=== PATIENT | male | born 1935 | race Caucasian/White ===

== ENCOUNTER 2020-03-04 16:54 | Observation (INO) | payer MEDICARE, BC ==
[2020-03-04] MEDS ORDERED: Sodium Chloride 0.9% 1,000 ML IV ONE ×2 (17:12→18:34)
--- NOTE | 2020-03-04 17:28 | EDM.PDOC ---
ED HPI GENERAL MEDICAL PROBLEM - General Chief Complaint: Gastrointestinal Problem Stated Complaint: Diarrhea Time Seen by Provider: 03/04/20 17:23 Source of Information: Reports: Patient History Limitations: Reports: No Limitations - History of Present Illness INITIAL COMMENTS - FREE TEXT/NARRATIVE: 84-year-old male presents the emergency room with a chief complaint of having diarrhea for the past 2 weeks unable to stop. Patient has been on medications through his doctor and instructed to come to the [facility]: Today Duration: Week(s): (2), Getting Worse Location: Reports: Abdomen Quality: Reports: Ache Severity: Mild Improves with: Reports: None Worsens with: Reports: None Associated Symptoms: Reports: No Other Symptoms - Related Data Allergies Allergy/AdvReac Type Severity Reaction Status Date / Time No Known Allergies Allergy Verified 03/04/20 17:11 Home Meds: Home Meds Clopidogrel [Plavix] 75 mg PO DAILY 03/04/20 [History] Finasteride [Proscar] 5 mg PO DAILY 03/04/20 [History] RX: Ferrous Sulfate 325 mg PO DAILY 03/04/20 [History] RX: Simvastatin [Zocor] 1 mg PO DAILY 03/04/20 [History] RX: hydroCHLOROthiazide [Hydrochlorothiazide] 25 mg PO DAILY 03/04/20 [History] Social & Family History - Tobacco Use Smoking Status *Q: Former Smoker Used Tobacco, but Quit: Yes Month/Year Tobacco Last Used: 11/1994 - Recreational Drug Use Recreational Drug Use: No ED ROS GENERAL - Review of Systems Review Of Systems: See Below Constitutional: Reports: No Symptoms HEENT: Reports: No Symptoms Respiratory: Reports: No Symptoms Cardiovascular: Reports: No Symptoms Endocrine: Reports: No Symptoms GI/Abdominal: Reports: Diarrhea : Reports: No Symptoms Musculoskeletal: Reports: No Symptoms Skin: Reports: No Symptoms Neurological: Reports: No Symptoms Psychiatric: Reports: No Symptoms Hematologic/Lymphatic: Reports: No Symptoms Immunologic: Reports: No Symptoms ED EXAM, GI/ABD - Physical Exam Exam: See Below Exam Limited By: No Limitations General Appearance: Alert, WD/WN, No Apparent Distress Eyes: Bilateral: Normal Appearance Ears: Normal External Exam, Normal Canal, Hearing Grossly Normal, Normal TMs Nose: Normal Inspection, Normal Mucosa Throat/Mouth: Normal Inspection, Normal Lips, Normal Teeth, Normal Oropharynx, Normal Voice Head: Atraumatic, Normocephalic Neck: Normal Inspection, Supple, Non-Tender, Full Range of Motion Respiratory/Chest: No Respiratory Distress, Lungs Clear, Normal Breath Sounds, No Accessory Muscle Use, Chest Non-Tender Cardiovascular: Normal Peripheral Pulses, Regular Rate, Rhythm, No Edema, No Gallop, No JVD, No Murmur, No Rub GI/Abdominal Exam: Normal Bowel Sounds, Soft, Non-Tender, No Distention, No Abnormal Bruit (Male) Exam: No Hernia, Normal Inspection Back Exam: Normal Inspection, Full Range of Motion Extremities: Normal Inspection, Normal Range of Motion, Non-Tender, No Pedal Edema, Normal Capillary Refill Neurological: Alert, Oriented, CN II-XII Intact, Normal Cognition, Normal Gait, Normal Reflexes, No Motor/Sensory Deficits Psychiatric: Normal Affect, Normal Mood Skin Exam: Warm, Dry, Intact, Normal Color, No Rash Lymphatic: No Adenopathy Course - Vital Signs Text/Narrative:: Patient presents the emergency room with dehydration's and diarrhea. Patient given IV fluids in the emergency room labs show cysts evidence of dehydration patient is currently having diagnostic test for possible C. difficile patient will be admitted to the observation for rehydration and treatment of diarrhea illness Last Recorded V/S: Last Vital Signs Temp 97.2 F 03/04/20 17:07 Pulse 91 03/04/20 17:07 Resp 18 03/04/20 17:07 BP 145/72 H 03/04/20 17:07 Pulse Ox 95 03/04/20 17:07 - Orders/Labs/Meds Orders: Active Orders 24 hr Category Date Time Status C DIFFICILE AG/TOXIN W/REFLEX [RM] Stat Lab 03/04/20 17:48 Ordered UA RFX ELIZABETH AND CULT IF INDIC [URIN] Stat Lab 03/04/20 17:21 Ordered Sodium Chloride 0.9% [Normal Saline] 1,000 ml Med 03/04/20 18:34 Active IV .BOLUS Medication Orders Sodium Chloride (Normal Saline) 1,000 mls @ 150 mls/hr IV .BOLUS ONE Stop: 03/05/20 01:13 Last Admin: 03/04/20 18:40 Dose: 150 mls/hr Labs: Laboratory Tests 03/04/20 03/04/20 Range/Units 17:20 17:20 WBC 5.81 (4.0-11.0) K/uL RBC 4.54 (4.50-5.90) M/uL Hgb 12.1 L (13.0-17.0) g/dL Hct 37.6 L (38.0-50.0) % MCV 82.8 (80.0-98.0) fL MCH 26.7 L (27.0-32.0) pg MCHC 32.2 (31.0-37.0) g/dL RDW Std Deviation 39.3 (28.0-62.0) fl RDW Coeff of Jeffry 13 (11.0-15.0) % Plt Count 357 (150-400) K/uL MPV 9.10 (7.40-12.00) fL Add Manual Diff YES Neutrophils % (Manual) 67 (48.0-80.0) % Lymphocytes % (Manual) 19 (16.0-40.0) % Monocytes % (Manual) 12 (0.0-15.0) % Eosinophils % (Manual) 2 (0.0-7.0) % Nucleated RBC % 0.0 /100WBC Absolute Seg Neuts 3.9 (1.4-5.7) Lymphocytes # (Manual) 1.1 (0.6-2.4) Monocytes # (Manual) 0.7 (0.0-0.8) Eosinophils # (Manual) 0.1 (0.0-0.7) Nucleated RBCs # 0 K/uL Sodium 139 (136-148) mmol/L Potassium 3.2 L (3.5-5.1) mmol/L Chloride 100 (98-107) mmol/L Carbon Dioxide 30.8 (21.0-32.0) mmol/L BUN 29 H (7.0-18.0) mg/dL Creatinine 1.9 H (0.8-1.3) mg/dL Est Cr Clr Drug Dosing 30.82 mL/min Estimated GFR (MDRD) 33.9 ml/min Glucose 136 H (74-106) mg/dL Calcium 8.4 L (8.5-10.1) mg/dL Total Bilirubin 0.3 (0.2-1.0) mg/dL AST 14 L (15-37) IU/L ALT 16 (14-63) IU/L Alkaline Phosphatase 89 (46-116) U/L Troponin I < 0.050 (0.000-0.056) ng/mL Total Protein 6.5 (6.4-8.2) g/dL Albumin 3.0 L (3.4-5.0) g/dL Globulin 3.5 (2.6-4.0) g/dL Albumin/Globulin Ratio 0.9 (0.9-1.6) Meds: Medications Generic Name Dose Route Start Last Admin Trade Name Freq PRN Reason Stop Dose Admin Sodium Chloride 1,000 mls @ 150 mls/hr 03/04/20 18:34 03/04/20 18:40 Normal Saline IV 03/05/20 01:13 150 mls/hr .BOLUS ONE Administration Discontinued Medications Generic Name Dose Route Start Last Admin Trade Name Freq PRN Reason Stop Dose Admin Sodium Chloride 1,000 mls @ 1,000 mls/hr 03/04/20 17:12 03/04/20 17:27 Normal Saline IV 03/04/20 18:11 1,000 mls/hr .Bolus ONE Administration Departure - Departure Time of Disposition: 19:10 Disposition: Refer to Observation Condition: Good Clinical Impression: Diarrhea - Discharge Information Referrals: PCP,None [Primary Care Provider] - Forms: ED Department Discharge Sepsis Event Note - Evaluation Sepsis Screening Result: No Definite Risk - Focused Exam Vital Signs: Vital Signs Temp Pulse Resp BP Pulse Ox 03/04/20 17:07 97.2 F 91 18 145/72 H 95 Date Exam was Performed: 03/04/20 Time Exam was Performed: 19:12 - My Orders Last 24 Hours: My Active Orders 03/04/20 17:21 UA RFX ELIZABETH AND CULT IF INDIC [URIN] Stat 03/04/20 17:48 C DIFFICILE AG/TOXIN W/REFLEX [RM] Stat 03/04/20 18:34 Sodium Chloride 0.9% [Normal Saline] 1,000 ml IV .BOLUS - Assessment/Plan Last 24 Hours: My Active Orders 03/04/20 17:21 UA RFX ELIZABETH AND CULT IF INDIC [URIN] Stat 03/04/20 17:48 C DIFFICILE AG/TOXIN W/REFLEX [RM] Stat 03/04/20 18:34 Sodium Chloride 0.9% [Normal Saline] 1,000 ml IV .BOLUS
[2020-03-04 17:54] LABS: BLOOD UREA NITROGEN,BUN 29 mg/dL (7.0-18.0); CARBON DIOXIDE,CO2 30.8 mmol/L (21.0-32.0); CHLORIDE,CL 100 mmol/L (98-107); GLUCOSE RANDOM 136 mg/dL (74-106); POTASSIUM,K 3.2 mmol/L (3.5-5.1); SODIUM,NA 139 mmol/L (136-148)
--- NOTE | 2020-03-04 17:59 | CR ---
Chest: Portable view of the chest was obtained. Comparison: No previous chest imaging. Heart size and mediastinum are normal. Lungs are clear with no acute parenchymal change. Surgical anchors are noted within the right humerus from prior surgery. Scattered degenerative endplate spurring is noted within the spine with mild scoliosis. Impression: 1. Nothing acute is seen on portable chest x-ray. Diagnostic code #2 This report was dictated in MDT
[2020-03-04] MEDS ORDERED: Ondansetron 4 MG/2 ML SDV IVPUSH PRN (20:35)
--- NOTE | 2020-03-04 20:51 | PCM.HP.2 ---
H&P History of Present Illness - General Date of Service: 03/04/20 Admit Problem/Dx: Admission Diagnosis/Problem Admission Diagnosis/Problem Dehydration - History of Present Illness Initial Comments - Free Text/Narative: 84 yo male who presents to the ED with complaint of diarrhea for three months. Patient reports his diarrhea has worsened over the past two weeks. He reports exposive loose stools several times a day. He denies any fevers, abdominal pain , blood in stool, nausea or vomiting. He reports no change in diet. He has lost weight and a friend who saw him today told him to got the the [place] ED. - Related Data Allergies/Adverse Reactions: Allergies Allergy/AdvReac Type Severity Reaction Status Date / Time No Known Allergies Allergy Verified 03/05/20 00:25 Home Medications: Home Meds Clopidogrel [Plavix] 75 mg PO DAILY 03/04/20 [History] Ferrous Sulfate 325 mg PO DAILY 03/04/20 [History] Finasteride [Proscar] 5 mg PO DAILY 03/04/20 [History] Simvastatin [Zocor] 10 mg PO DAILY 03/04/20 [History] hydroCHLOROthiazide [Hydrochlorothiazide] 25 mg PO DAILY 03/04/20 [History] Loperamide [Imodium] 2 - 4 mg PO ASDIRECTED PRN 10 Days #16 cap 03/06/20 [Rx] Past Medical History HEENT History: Reports: Hard of Hearing, Impaired Vision Cardiovascular History: Reports: High Cholesterol, Hypertension Genitourinary History: Reports: Retention, Urinary, Other (See Below) Other Genitourinary History: per , pt has had david placed and prostate infection at one time but unable to give detailed hx. Musculoskeletal History: Reports: Other (See Below) Other Musculoskeletal History: weakness right side, uses cane at home sometimes Neurological History: Reports: Other (See Below) Other Neuro History: possible dementia or alzheimers, pt denies medical problems. per he has undiagnosed dementia and a stroke but unsure how long ago Hematologic History: Reports: Iron Deficiency Social & Family History - Family History Family Medical History: Noncontributory - Tobacco Use Smoking Status *Q: Former Smoker Used Tobacco, but Quit: Yes Month/Year Tobacco Last Used: 11/1994 - Recreational Drug Use Recreational Drug Use: No H&P Review of Systems - Review of Systems: Review Of Systems: Comprehensive ROS is negative, except as noted in HPI. Exam - Exam Exam: See Below - Vital Signs Vital Signs: Last Vital Signs Temp 36.2 C 03/04/20 17:07 Pulse 82 03/04/20 20:10 Resp 16 03/04/20 20:10 BP 118/63 03/04/20 20:10 Pulse Ox 99 03/04/20 20:10 Weight: 81.647 kg - Exam General: Alert, Oriented HEENT: Mucosa Moist & [place], Posterior Pharynx Clear Neck: Supple, Trachea Midline Lungs: Clear to Auscultation, Normal Respiratory Effort Cardiovascular: Regular Rate, Regular Rhythm GI/Abdominal Exam: Normal Bowel Sounds, Soft, Non-Tender, No Organomegaly Extremities: Non-Tender, No Pedal Edema Skin: Warm, Dry, Intact - Patient Data Lab Results Last 24 hrs: Laboratory Results - last 24 hr 03/04/20 03/04/20 03/04/20 Range/Units 17:20 17:20 19:00 WBC 5.81 (4.0-11.0) K/uL RBC 4.54 (4.50-5.90) M/uL Hgb 12.1 L (13.0-17.0) g/dL Hct 37.6 L (38.0-50.0) % MCV 82.8 (80.0-98.0) fL MCH 26.7 L (27.0-32.0) pg MCHC 32.2 (31.0-37.0) g/dL RDW Std Deviation 39.3 (28.0-62.0) fl RDW Coeff of Jeffry 13 (11.0-15.0) % Plt Count 357 (150-400) K/uL MPV 9.10 (7.40-12.00) fL Add Manual Diff YES Neutrophils % (Manual) 67 (48.0-80.0) % Lymphocytes % (Manual) 19 (16.0-40.0) % Monocytes % (Manual) 12 (0.0-15.0) % Eosinophils % (Manual) 2 (0.0-7.0) % Nucleated RBC % 0.0 /100WBC Absolute Seg Neuts 3.9 (1.4-5.7) Lymphocytes # (Manual) 1.1 (0.6-2.4) Monocytes # (Manual) 0.7 (0.0-0.8) Eosinophils # (Manual) 0.1 (0.0-0.7) Nucleated RBCs # 0 K/uL Sodium 139 (136-148) mmol/L Potassium 3.2 L (3.5-5.1) mmol/L Chloride 100 (98-107) mmol/L Carbon Dioxide 30.8 (21.0-32.0) mmol/L BUN 29 H (7.0-18.0) mg/dL Creatinine 1.9 H (0.8-1.3) mg/dL Est Cr Clr Drug Dosing 30.82 mL/min Estimated GFR (MDRD) 33.9 ml/min Glucose 136 H (74-106) mg/dL Calcium 8.4 L (8.5-10.1) mg/dL Total Bilirubin 0.3 (0.2-1.0) mg/dL AST 14 L (15-37) IU/L ALT 16 (14-63) IU/L Alkaline Phosphatase 89 (46-116) U/L Troponin I < 0.050 (0.000-0.056) ng/mL Total Protein 6.5 (6.4-8.2) g/dL Albumin 3.0 L (3.4-5.0) g/dL Globulin 3.5 (2.6-4.0) g/dL Albumin/Globulin Ratio 0.9 (0.9-1.6) Urine Color YELLOW Urine Appearance CLEAR Urine pH 5.5 (5.0-8.0) Ur Specific [place] >= 1.030 (1.001-1.035) Urine Protein NEGATIVE (NEGATIVE) mg/dL Urine Glucose (UA) NEGATIVE (NEGATIVE) mg/dL Urine Ketones NEGATIVE (NEGATIVE) mg/dL Urine Occult Blood NEGATIVE (NEGATIVE) Urine Nitrite NEGATIVE (NEGATIVE) Urine Bilirubin NEGATIVE (NEGATIVE) Urine Urobilinogen 0.2 (<2.0) EU/dL Ur Leukocyte Esterase NEGATIVE (NEGATIVE) Result Diagrams: 03/06/20 05:55 03/06/20 05:55 Zhou Results Last 24 hrs: Microbiology 03/04/20 19:00 C. difficile Antigen & Toxins A,B - Final Stool / Feces Sepsis Event Note - Evaluation Sepsis Screening Result: No Definite Risk - Focused Exam Vital Signs: Vital Signs Temp Pulse Resp BP Pulse Ox 03/04/20 20:10 82 16 118/63 99 03/04/20 17:07 36.2 C 91 18 145/72 H 95 Date Exam was Performed: 03/06/20 Time Exam was Performed: 11:18 Problem List Initiated/Reviewed/Updated: Yes Orders Last 24hrs: Active Orders 24 hr Category Date Time Status Admission Status [Patient Status] [ADT] Stat ADT 03/04/20 19:13 Active Antiembolic Devices [RC] PER UNIT ROUTINE Care 03/04/20 20:36 Ordered Oxygen Therapy [RC] PRN Care 03/04/20 20:35 Ordered Up ad Maxine [RC] ASDIRECTED Care 03/04/20 20:35 Ordered VTE/DVT Education [RC] PER UNIT ROUTINE Care 03/04/20 20:35 Ordered Vital Signs [RC] Q4H Care 03/04/20 20:35 Ordered Regular Diet [DIET] Diet 03/04/20 Breakfast Ordered BASIC METABOLIC PANEL,BMP [CHEM] AM Lab 03/05/20 05:11 Ordered CBC WITH AUTO DIFF [HEME] AM Lab 03/05/20 05:11 Ordered MAGNESIUM [CHEM] AM Lab 03/05/20 05:11 Ordered Ondansetron [Zofran] Med 03/04/20 20:35 Ordered 4 mg IVPUSH Q4H PRN Sodium Chloride 0.9% [Normal Saline] 1,000 ml Med 03/04/20 18:34 Active IV .BOLUS Sequential Compression Device [OM.PC] Per Unit Routine Oth 03/04/20 20:35 Ordered Resuscitation Status Routine Resus Stat 03/04/20 20:35 Ordered Medication Orders Sodium Chloride (Normal Saline) 1,000 mls @ 150 mls/hr IV .BOLUS ONE Stop: 03/05/20 01:13 Last Admin: 03/04/20 18:40 Dose: 150 mls/hr Ondansetron HCl (Zofran) 4 mg IVPUSH Q4H PRN PRN Reason: Nausea Assessment/Plan Comment:: 84 yo male admitted for diarrhea and dehydration. We will hydrate with IV fluids and send stools studies.
[2020-03-04 21:15] LABS: BILIRUBIN INDIRECT 0.2
[2020-03-04] MEDS: Sodium Chloride 0.9% 1,000 ML IV SCH (22:53)
[2020-03-05] MEDS: Sodium Chloride 0.9% 1,000 ML IV SCH ×2 (05:51→15:41)
[2020-03-05 06:40] LABS: CARBON DIOXIDE,CO2 32.4 mmol/L (21.0-32.0); POTASSIUM,K 4.1 mmol/L (3.5-5.1)
[2020-03-05] MEDS: Loperamide 2 MG Cap PO PRN ×2 (10:16→12:33)
--- NOTE | 2020-03-05 10:38 | PCM.PN ---
- General Info Date of Service: 03/05/20 - Review of Systems Systems Review Comment:: reports diarrhea, denies any blood in stool or fevers - Patient Data Vitals - Most Recent: Last Vital Signs Temp 36.6 C 03/05/20 07:45 Pulse 84 03/05/20 07:45 Resp 16 03/05/20 07:45 BP 125/60 03/05/20 07:45 Pulse Ox 99 03/05/20 07:45 Weight - Most Recent: 81.647 kg I&O - Last 24 Hours: Intake & Output 03/04/20 03/05/20 03/05/20 22:59 06:59 14:59 Intake Total 1212 Output Total 870 Balance 342 Lab Results Last 24 Hours: Laboratory Results - last 24 hr 03/04/20 03/04/20 03/04/20 Range/Units 17:20 17:20 17:20 WBC 5.81 (4.0-11.0) K/uL RBC 4.54 (4.50-5.90) M/uL Hgb 12.1 L (13.0-17.0) g/dL Hct 37.6 L (38.0-50.0) % MCV 82.8 (80.0-98.0) fL MCH 26.7 L (27.0-32.0) pg MCHC 32.2 (31.0-37.0) g/dL RDW Std Deviation 39.3 (28.0-62.0) fl RDW Coeff of Jeffry 13 (11.0-15.0) % Plt Count 357 (150-400) K/uL MPV 9.10 (7.40-12.00) fL Add Manual Diff YES Neutrophils % (Manual) 67 (48.0-80.0) % Band Neutrophils % % Lymphocytes % (Manual) 19 (16.0-40.0) % Monocytes % (Manual) 12 (0.0-15.0) % Eosinophils % (Manual) 2 (0.0-7.0) % Nucleated RBC % 0.0 /100WBC Absolute Seg Neuts 3.9 (1.4-5.7) Band Neutrophils # Lymphocytes # (Manual) 1.1 (0.6-2.4) Monocytes # (Manual) 0.7 (0.0-0.8) Eosinophils # (Manual) 0.1 (0.0-0.7) Nucleated RBCs # 0 K/uL Sodium 139 (136-148) mmol/L Potassium 3.2 L (3.5-5.1) mmol/L Chloride 100 (98-107) mmol/L Carbon Dioxide 30.8 (21.0-32.0) mmol/L BUN 29 H (7.0-18.0) mg/dL Creatinine 1.9 H (0.8-1.3) mg/dL Est Cr Clr Drug Dosing 30.82 mL/min Estimated GFR (MDRD) 33.9 ml/min Glucose 136 H (74-106) mg/dL Calcium 8.4 L (8.5-10.1) mg/dL Magnesium (1.8-2.4) mg/dL Total Bilirubin 0.3 0.3 (0.2-1.0) mg/dL Direct Bilirubin 0.10 (0.0-0.5) mg/dL Indirect Bilirubin 0.20 AST 14 L 20 (15-37) IU/L ALT 16 17 (14-63) IU/L Alkaline Phosphatase 89 89 (46-116) U/L Troponin I < 0.050 (0.000-0.056) ng/mL Total Protein 6.5 6.5 (6.4-8.2) g/dL Albumin 3.0 L 3.0 L (3.4-5.0) g/dL Globulin 3.5 3.5 (2.6-4.0) g/dL Albumin/Globulin Ratio 0.9 0.9 (0.9-1.6) Urine Color Urine Appearance Urine pH (5.0-8.0) Ur Specific [place] (1.001-1.035) Urine Protein (NEGATIVE) mg/dL Urine Glucose (UA) (NEGATIVE) mg/dL Urine Ketones (NEGATIVE) mg/dL Urine Occult Blood (NEGATIVE) Urine Nitrite (NEGATIVE) Urine Bilirubin (NEGATIVE) Urine Urobilinogen (<2.0) EU/dL Ur Leukocyte Esterase (NEGATIVE) 03/04/20 03/05/20 03/05/20 Range/Units 19:00 06:02 06:02 WBC 6.06 (4.0-11.0) K/uL RBC 4.18 L (4.50-5.90) M/uL Hgb 11.2 L (13.0-17.0) g/dL Hct 34.6 L (38.0-50.0) % MCV 82.8 (80.0-98.0) fL MCH 26.8 L (27.0-32.0) pg MCHC 32.4 (31.0-37.0) g/dL RDW Std Deviation 39.0 (28.0-62.0) fl RDW Coeff of Jeffry 13 (11.0-15.0) % Plt Count 288 (150-400) K/uL MPV 9.20 (7.40-12.00) fL Add Manual Diff YES Neutrophils % (Manual) 45 L (48.0-80.0) % Band Neutrophils % 17 % Lymphocytes % (Manual) 24 (16.0-40.0) % Monocytes % (Manual) 7 (0.0-15.0) % Eosinophils % (Manual) 7 (0.0-7.0) % Nucleated RBC % 0.0 /100WBC Absolute Seg Neuts 2.7 (1.4-5.7) Band Neutrophils # 1.0 Lymphocytes # (Manual) 1.5 (0.6-2.4) Monocytes # (Manual) 0.4 (0.0-0.8) Eosinophils # (Manual) 0.4 (0.0-0.7) Nucleated RBCs # 0 K/uL Sodium 144 (136-148) mmol/L Potassium 4.1 (3.5-5.1) mmol/L Chloride 107 (98-107) mmol/L Carbon Dioxide 32.4 H (21.0-32.0) mmol/L BUN 21 H (7.0-18.0) mg/dL Creatinine 1.5 H (0.8-1.3) mg/dL Est Cr Clr Drug Dosing 39.04 mL/min Estimated GFR (MDRD) 44.6 ml/min Glucose 94 (74-106) mg/dL Calcium 8.1 L (8.5-10.1) mg/dL Magnesium 1.9 (1.8-2.4) mg/dL Total Bilirubin (0.2-1.0) mg/dL Direct Bilirubin (0.0-0.5) mg/dL Indirect Bilirubin AST (15-37) IU/L ALT (14-63) IU/L Alkaline Phosphatase (46-116) U/L Troponin I (0.000-0.056) ng/mL Total Protein (6.4-8.2) g/dL Albumin (3.4-5.0) g/dL Globulin (2.6-4.0) g/dL Albumin/Globulin Ratio (0.9-1.6) Urine Color YELLOW Urine Appearance CLEAR Urine pH 5.5 (5.0-8.0) Ur Specific [place] >= 1.030 (1.001-1.035) Urine Protein NEGATIVE (NEGATIVE) mg/dL Urine Glucose (UA) NEGATIVE (NEGATIVE) mg/dL Urine Ketones NEGATIVE (NEGATIVE) mg/dL Urine Occult Blood NEGATIVE (NEGATIVE) Urine Nitrite NEGATIVE (NEGATIVE) Urine Bilirubin NEGATIVE (NEGATIVE) Urine Urobilinogen 0.2 (<2.0) EU/dL Ur Leukocyte Esterase NEGATIVE (NEGATIVE) Zhou Results Last 24 Hours: Microbiology 03/04/20 19:00 C. difficile Antigen & Toxins A,B - Final Stool / Feces Med Orders - Current: Current Medications Clopidogrel Bisulfate (Plavix) 75 mg PO DAILY [facility] Finasteride (Proscar) 5 mg PO DAILY [facility] Hydrochlorothiazide (Hydrochlorothiazide) 25 mg PO DAILY [facility] Sodium Chloride (Normal Saline) 1,000 mls @ 125 mls/hr IV ASDIRECTED IRA Last Admin: 03/05/20 05:51 Dose: 125 mls/hr Loperamide HCl (Imodium) 0 mg PO ASDIRECTED PRN PRN Reason: Diarrhea Last Admin: 03/05/20 10:16 Dose: 4 mg Ondansetron HCl (Zofran) 4 mg IVPUSH Q4H PRN PRN Reason: Nausea Simvastatin (Zocor) 1 mg PO DAILY [facility] Discontinued Medications Sodium Chloride (Normal Saline) 1,000 mls @ 1,000 mls/hr IV .Bolus ONE Stop: 03/04/20 18:11 Last Admin: 03/04/20 17:27 Dose: 1,000 mls/hr Sodium Chloride (Normal Saline) 1,000 mls @ 150 mls/hr IV .BOLUS ONE Stop: 03/05/20 01:13 Last Admin: 03/04/20 18:40 Dose: 150 mls/hr - Exam General: Alert, Oriented HEENT: Pupils Equal Neck: Supple Lungs: Clear to Auscultation, Normal Respiratory Effort Cardiovascular: Regular Rate, Regular Rhythm GI/Abdominal Exam: Normal Bowel Sounds, Soft, Non-Tender, No Distention Extremities: Non-Tender, No Pedal Edema Skin: Warm, Dry, Intact Neurological: No New Focal Deficit Sepsis Event Note - Evaluation Sepsis Screening Result: No Definite Risk - Focused Exam Vital Signs: Vital Signs Temp Pulse Resp BP Pulse Ox 03/05/20 07:45 36.6 C 84 16 125/60 99 03/05/20 04:00 37.1 C 88 17 129/60 96 03/05/20 00:00 36.6 C 78 18 126/57 L 97 Date Exam was Performed: 03/05/20 Time Exam was Performed: 10:27 - Problem List Review Problem List Initiated/Reviewed/Updated: Yes - My Orders Last 24 Hours: My Active Orders 03/04/20 19:00 STOOL CULTURE/SHIGA TOXIN [MREF] Routine 03/04/20 20:35 Oxygen Therapy [RC] PRN Up ad Maxine [RC] ASDIRECTED VTE/DVT Education [RC] PER UNIT ROUTINE Vital Signs [RC] Q4H Ondansetron [Zofran] 4 mg IVPUSH Q4H PRN Sequential Compression Device [OM.PC] Per Unit Routine Resuscitation Status Routine 03/04/20 20:36 Antiembolic Devices [RC] PER UNIT ROUTINE 03/04/20 21:00 Sodium Chloride 0.9% [Normal Saline] 1,000 ml IV ASDIRECTED 03/06/20 05:11 BASIC METABOLIC PANEL,BMP [CHEM] AM CBC WITH AUTO DIFF [HEME] AM 03/06/20 09:00 Clopidogrel [Plavix] 75 mg PO DAILY Finasteride [Proscar] 5 mg PO DAILY Simvastatin [Zocor] 1 mg PO DAILY hydroCHLOROthiazide 25 mg PO DAILY - Plan Plan:: 84 yo male admitted for diarrhea, dehydration and PRISCILLA. Creatinine has improved to 1.5, Stool studies pending, Will monitor overnight again and likely discharge home tomorrow.
[2020-03-06] MEDS: Sodium Chloride 0.9% 1,000 ML IV SCH (05:29)
[2020-03-06 06:43] LABS: CARBON DIOXIDE,CO2 29.9 mmol/L (21.0-32.0); POTASSIUM,K 3.3 mmol/L (3.5-5.1)
[2020-03-06] MEDS ORDERED: Finasteride 5 MG Tab PO SCH (09:00)
[2020-03-06] MEDS ORDERED: Simvastatin 10 MG Tab PO SCH ×2 (09:00)
[2020-03-06] MEDS ORDERED: Hydrochlorothiazide 25 MG Tab PO SCH (09:00)
[2020-03-06] MEDS ORDERED: Clopidogrel 75 MG Tab PO SCH (09:00)
[2020-03-06] MEDS ORDERED: Potassium Chloride 20 MEQ Tab.ER PO ONE (09:25)
[2020-03-06] MEDS: Loperamide 2 MG Cap PO PRN (10:47)
--- NOTE | 2020-03-06 11:18 | PCM.DCSUM1 ---
Discharge Summary - Discharge Data Discharge Date: 03/06/20 Discharge Disposition: Home, Self-Care 01 Condition: Good - Referral to Home Health Primary Care Physician: PCP None - Patient Summary/Data Hospital Course: 84 yo male who was admitted for dehydration and acute kidney injury from a diarrheal illness. He presented to the ED with a complaint of diarrhea for three months. He denied any blood in stool, fevers or abdominal pain. His BUN was 29 and creatinine was 1.9. He was treated with IV fluids. Stool studies were collected and he was negative for C.diff, but stool culture is still pending. His acute kidney injury resolved and he had improvement of his diarrhea with Imodium. Today he is requesting discharge. He was discharged home to have follow up with [facility]. - Discharge Plan Prescriptions/Med Rec: Loperamide [Imodium] 2 - 4 mg PO ASDIRECTED PRN 10 Days #16 cap PRN Reason: Diarrhea Home Medications: Home Meds Clopidogrel [Plavix] 75 mg PO DAILY 03/04/20 [History] Ferrous Sulfate 325 mg PO DAILY 03/04/20 [History] Finasteride [Proscar] 5 mg PO DAILY 03/04/20 [History] Simvastatin [Zocor] 10 mg PO DAILY 03/04/20 [History] hydroCHLOROthiazide [Hydrochlorothiazide] 25 mg PO DAILY 03/04/20 [History] Loperamide [Imodium] 2 - 4 mg PO ASDIRECTED PRN 10 Days #16 cap 03/06/20 [Rx] Patient Handouts: Diarrhea, Adult, [id number] Referrals: Apple Mckenzie NP [Ordering Only Provider] - 03/15/20 10:00 am (Please arrive 15 minutes early to be seen.) - Discharge Summary/Plan Comment DC Time >30 min.: No - Patient Data Vitals - Most Recent: Last Vital Signs Temp 36.8 C 03/06/20 07:39 Pulse 75 03/06/20 07:39 Resp 16 03/06/20 07:39 BP 127/62 03/06/20 07:39 Pulse Ox 100 03/06/20 07:39 Weight - Most Recent: 81.647 kg I&O - Last 24 hours: Intake & Output 03/05/20 03/06/20 03/06/20 22:59 06:59 14:59 Intake Total 2235 1900 Output Total 300 Balance 2235 1600 Lab Results - Last 24 hrs: Laboratory Results - last 24 hr 03/06/20 03/06/20 Range/Units 05:55 05:55 WBC 6.12 (4.0-11.0) K/uL RBC 4.15 L (4.50-5.90) M/uL Hgb 11.0 L (13.0-17.0) g/dL Hct 34.9 L (38.0-50.0) % MCV 84.1 (80.0-98.0) fL MCH 26.5 L (27.0-32.0) pg MCHC 31.5 (31.0-37.0) g/dL RDW Std Deviation 39.8 (28.0-62.0) fl RDW Coeff of Jeffry 13 (11.0-15.0) % Plt Count 309 (150-400) K/uL MPV 9.20 (7.40-12.00) fL Neut % (Auto) 60.4 (48.0-80.0) % Lymph % (Auto) 18.0 (16.0-40.0) % [place] % (Auto) 19.8 H (0.0-15.0) % Eos % (Auto) 1.6 (0.0-7.0) % Baso % (Auto) 0.2 (0.0-1.5) % Neut # (Auto) 3.7 (1.4-5.7) K/uL Lymph # (Auto) 1.1 (0.6-2.4) K/uL [place] # (Auto) 1.2 H (0.0-0.8) K/uL Eos # (Auto) 0.1 (0.0-0.7) K/uL Baso # (Auto) 0.0 (0.0-0.1) K/uL Nucleated RBC % 0.0 /100WBC Nucleated RBCs # 0 K/uL Sodium 143 (136-148) mmol/L Potassium 3.3 L (3.5-5.1) mmol/L Chloride 106 (98-107) mmol/L Carbon Dioxide 29.9 (21.0-32.0) mmol/L BUN 15 (7.0-18.0) mg/dL Creatinine 1.2 (0.8-1.3) mg/dL Est Cr Clr Drug Dosing 48.81 mL/min Estimated GFR (MDRD) 57.7 ml/min Glucose 110 H (74-106) mg/dL Calcium 7.8 L (8.5-10.1) mg/dL Med Orders - Current: Current Medications Clopidogrel Bisulfate (Plavix) 75 mg PO DAILY [facility] Last Admin: 03/06/20 09:10 Dose: 75 mg Finasteride (Proscar) 5 mg PO DAILY [facility] Last Admin: 03/06/20 09:11 Dose: 5 mg Hydrochlorothiazide (Hydrochlorothiazide) 25 mg PO DAILY [facility] Last Admin: 03/06/20 09:10 Dose: 25 mg Sodium Chloride (Normal Saline) 1,000 mls @ 125 mls/hr IV ASDIRECTED [facility] Last Admin: 03/06/20 05:29 Dose: 125 mls/hr Loperamide HCl (Imodium) 0 mg PO ASDIRECTED PRN PRN Reason: Diarrhea Last Admin: 03/06/20 10:47 Dose: 2 mg Ondansetron HCl (Zofran) 4 mg IVPUSH Q4H PRN PRN Reason: Nausea Simvastatin (Zocor) 10 mg PO DAILY [facility] Last Admin: 03/06/20 09:20 Dose: 10 mg Discontinued Medications Sodium Chloride (Normal Saline) 1,000 mls @ 1,000 mls/hr IV .Bolus ONE Stop: 03/04/20 18:11 Last Admin: 03/04/20 17:27 Dose: 1,000 mls/hr Sodium Chloride (Normal Saline) 1,000 mls @ 150 mls/hr IV .BOLUS ONE Stop: 03/05/20 01:13 Last Admin: 03/04/20 18:40 Dose: 150 mls/hr Potassium Chloride (Klor-Con M20) 40 meq PO ONETIME ONE Stop: 03/06/20 09:26 Last Admin: 03/06/20 10:47 Dose: 40 meq Simvastatin (Zocor) 1 mg PO DAILY [facility] Last Admin: 03/06/20 09:21 Dose: Not Given
== END 2020-03-06 12:30 | disposition home or self-care (01) ==
LOC: MW.ED 16:54 → MW.MS 19:29
PROVIDERS: ADMIT Internal Medicine; ATTEND Internal Medicine
DX: R19.7 Diarrhea, unspecified (principal); E86.0 Dehydration; N17.9 Acute kidney failure, unspecified; E78.00 Pure hypercholesterolemia, unspecified; I10 Essential (primary) hypertension; Z87.891 Personal history of nicotine dependence; Z79.899 Other long term (current) drug therapy
CPT/HCPCS: 36415; 71045; 80048; 80053; 80076; 81003; 83735; 84484; 85025; 87045; 87046; 87324; 87899; 96360; 96361; 99285; A9270; J7030; 99283